=== PATIENT | female | born 1975 | race Hispanic/Latino ===

== ENCOUNTER 2020-09-13 07:56 | Day surgery (SDC) | payer BC ==
[2020-09-13 08:17] LABS: Specific Gravity 1.015 (1.005-1.030)
[2020-09-13] MEDS ORDERED: SCOPOLAMINE HYDROBROMIDE PATCH TD ONE ×2 (08:56→09:00)
[2020-09-13] MEDS ORDERED: CEFAZOLIN/SWI 2gm 2 GM/20 ML SYR ONE (09:00)
[2020-09-13] MEDS ORDERED: Ringers Lactate 1,000 ML IV ONE (09:00)
[2020-09-13 09:11] VITALS: O2SAT 100
[2020-09-13] MEDS ORDERED: FENTANYL CITR 100 MCG/2 ML ONE (09:34)
[2020-09-13] MEDS ORDERED: propofoL 200 MG/20 ML VIAL IV ONE (09:34)
[2020-09-13] MEDS ORDERED: LIDOCAINE 2% MPF 5 ML VIAL ONE (09:34)
[2020-09-13] MEDS ORDERED: MIDAZOLAM HCL 2 MG/2 ML INJ ONE (09:35)
[2020-09-13] MEDS ORDERED: ONDANSETRON 4 MG/2 ML VIAL ONE (09:37)
[2020-09-13] MEDS ORDERED: LIDOCAINE 1% W/EPI 1:100,000 MDV 20 ML VIAL ONE (10:15)
[2020-09-13] MEDS ORDERED: KETOROLAC 30 MG/ML INJ ONE (10:47)
[2020-09-13] MEDS ORDERED: HYDROCODONE/APAP 5/325 MG TAB PO PRN (10:48)
[2020-09-13] MEDS ORDERED: IBUPROFEN 200 MG TAB PO PRN (10:48)
[2020-09-13] MEDS ORDERED: PROMETHAZINE INJ 25 MG/ML AMP IV PRN (10:48)
[2020-09-13] MEDS ORDERED: MEPERIDINE HCL 25 MG/ML SYR IM PRN (10:48)
--- NOTE | 2020-09-13 10:53 | P.BOP ---
Preoperative diagnosis: AUB-A/O/KAELYN Postoperative diagnosis: same Primary procedure: Hysteroscopy Endometrial Ablation with Novasure Electronic Equipment Installer: NONE,NONE Estimated blood loss: min Specimen: none Findings: L=5;W=4.6;N=988L; T=2min, 3rd degree retroflexion Anesthesia: General Complications: None Transferred to: Recovery Room Condition: Good
[2020-09-13] MEDS ORDERED: HOME MED 1 EA UNK (Docusate Sodium [Stool Softener] 50 MG Capsule) PO SCH (11:00)
--- NOTE | 2020-09-13 11:55 | OP ---
Date of Procedure: 09/13/2020 Surgeon: Tracey Calle MD [employer] Operator: No assistants. Preoperative Diagnoses: Menorrhagia and iron-deficiency anemia. Postoperative Diagnoses: Menorrhagia and iron-deficiency anemia. Procedures Performed: Hysteroscopy, endometrial ablation with NovaSure. Complications: No complications. Drains: No drains. Anesthesia: General with LMA. Specimens: No specimens. Condition: Stable. Ebl: Minimal. Findings: Uterus retroflexed, 3 degree. Cavity measurements 8.5 sounding length, calculated cavity length was 5, width of 4.6 cm, power 127 clay and T was 2 minutes, 120 seconds. Ablation completed without any complications. Indications: The patient is a female with menorrhagia. Endometrial sampling was performed and no atypia or malignancy were then seen on ultrasound. No abnormalities noted other than a thick endometrial lining. On outpatient evaluation with laparoscopy, her pain level was very high, did no t tolerate the outpatient procedure well, so she was [facility]. She was given doxycycline perioperatively and is on this at this current time. She is a 2, p anushka 3, with a definitive control tubal in place. Description Of Procedure: After she was re-consented in the preoperative area, taken back to the OR, placed in a supine fashion on the operating table. 2 g of Ancef were given. She was placed in dors al lithotomy position after anesthesia was given. The vulva, vagina, and perineum were prepped and d raped in a sterile fashion. Speculum was placed to expose the cervix. Anterior lip was grasped with 2 Allis clamps. SlimLine diagnostic hysteroscope was used to enter the cervical canal and under dir ect vision was traversed through it into the uterine cavity. The cavity measurements were taken unde r direct vision with the hysteroscope. Sounding length of 8.5 cm. The cervical length was 3. Cavit y length was calculated to be 5 cm into the generator and once the scope was removed endometrial abla tion device was opened up. It was primed and inserted into the uterine cavity. The device was deplo yed and the cervical plug was applied for a seal. Then, cavity integrity test was done and once it w as passed, continued on to the ablation cycle. The ablation was done without interruption to 1 minute 46 seconds at which point there was a leak at the cervix. Once this was corrected and the ablation cycle was restarted, it completed the 2 minute cycle without any interruption. The patient tolerated the procedure well during this time. The jeremiah ce was undeployed in the usual fashion and removed. Then, I did a diagnostic hysteroscopy again to c lean out the ablated tissue from the endometrial canal. Then, the instruments were removed. Instrum ent and sponge counts were correct and the patient was recovered from anesthesia, taken to PACU in st able condition. She was given 30 mg of Toradol before the patient was recovered. She has a 1 month followup appointment. All the recovery instructions have been printed out for the patient. ELIU Voice ID: [id number] Report ID: [id number]
[2020-09-13] MEDS ORDERED: HYDROCODONE/APAP 5/325 MG TAB ONE (12:50)
[2020-09-13 13:18] VITALS: BP 107/63; TEMP 98
[2020-09-13] MEDS ORDERED: DOXYCYCLINE HYCLATE 75 MG PO SCH (21:00)
[2020-09-14] MEDS ORDERED: HOME MED 1 EA UNK (Cyanocobalamin (Vitamin B-12) [Vitamin B-12] 1,000 MCG Capsule) PO SCH (09:00)
[2020-09-14] MEDS ORDERED: HOME MED 1 EA UNK (Lactobacillus Acidophilus [Probiotic] Capsule) PO SCH (09:00)
== END 2020-09-13 13:44 | disposition home or self-care (01) ==
LOC: OR 07:56
PROVIDERS: ATTEND Obstetrics & Gynecology
PROC: 0U5B8ZZ Destruction of Endometrium, Via Natural or Artificial Opening Endoscopic (ICD-10-PCS; principal; 2020-09-13 09:30)
DX: N92.0 Excessive and frequent menstruation with regular cycle (principal); D50.9 Iron deficiency anemia, unspecified; N71.1 Chronic inflammatory disease of uterus; N94.6 Dysmenorrhea, unspecified; Z20.822 Contact with and (suspected) exposure to COVID-19
CPT/HCPCS: 81025; 58563; U0003; J2704; J2250; J3010; J0690; J7120; J2405